=== PATIENT | female | born 1945 | race Caucasian/White ===

== ENCOUNTER 2024-07-14 07:48 | Day surgery (SDC) | payer OTHER ==
[2024-07-11 14:58] VITALS: BMI 30.4
[2024-07-14 08:15] VITALS: RESP 16
[2024-07-14 09:56] VITALS: TEMP 97.3
[2024-07-14 10:04] VITALS: BP 117/66; PULSE 54
== END 2024-07-14 10:10 | disposition home or self-care (01) ==
LOC: FASU-ENDO 07:48
PROVIDERS: ATTEND Internal Medicine Gastroenterology
PROC: 0DJD8ZZ Inspection of Lower Intestinal Tract, Via Natural or Artificial Opening Endoscopic (ICD-10-PCS; principal; 2024-07-14 09:01)
DX: Z12.11 Encounter for screening for malignant neoplasm of colon (principal)